=== PATIENT | female | born 1990 | race African-American/Black ===

== ENCOUNTER 2019-01-07 15:12 | Emergency (ER) | payer OTHER ==
[~2019-01-07] VITALS: Ht 149.9 cm; Wt 71.2 kg
[2019-01-07 17:00] VITALS: BP 132/81
[2019-01-07] MEDS ORDERED: LIDOCAINE PAIN1 EACH TRANSDERM (17:03)
[2019-01-07] MEDS ORDERED: ULTRAM 50MG TAB50 MG PO (17:03)
== END 2019-01-07 18:02 | disposition home or self-care (01) ==
LOC: ER 15:12
DX: M54.6 Pain in thoracic spine (principal)